=== PATIENT | female | born 1995 | race Caucasian/White ===

== ENCOUNTER → 2020-07-09 | Outpatient (CLI) | payer SELFPAY | LOC: M LABSMTC 10:48 | PROVIDERS: ATTEND Pediatrics | DX: Z20.828 Contact with and (suspected) exposure to other viral communicable diseases (principal) ==

== ENCOUNTER 2021-06-29 06:40 | Outpatient (RCR) | END 2021-06-29 15:00 | disposition home or self-care (01) | LOC: M EMP 06:40 | PROVIDERS: ATTEND Pediatrics | DX: Z11.52 Encounter for screening for COVID-19 (principal) ==

== ENCOUNTER → 2022-09-15 | Outpatient (REF) | payer BC | LOC: M PLALAB 14:27 | PROVIDERS: ATTEND Advanced Practice Midwife | DX: Z53.9 Procedure and treatment not carried out, unspecified reason (principal) ==

== ENCOUNTER → 2022-10-05 | Outpatient (CLI) | payer BC ==
[2022-10-05 16:33] LABS: HEMATOCRIT 39.2 % (36.0-47.0); HEMOGLOBIN 13.3 g/dl (12.0-15.5); MEAN CORPUSCULAR HEMOGLOBIN 31.1 pg (27.0-33.0); MEAN CORPUSCULAR HGB CONC 33.9 g/dl (32.0-36.5); MEAN CORPUSCULAR VOLUME 91.8 fl (80.0-96.0); PLATELET COUNT, AUTOMATED 285 10^3/uL (150-450); RED BLOOD COUNT 4.27 10^6/uL (4.00-5.40); WHITE BLOOD COUNT 11.1 10^3/uL (4.0-10.0)
[2022-10-05 17:29] LABS: HIV 1&2 SCREEN CENTAUR NEGATIVE (NEGATIVE)
[2022-10-05 19:37] LABS: GC DNA AMPLIFICATION NEGATIVE (NEGATIVE)
== END ==
LOC: M PLALAB 14:12
PROVIDERS: ATTEND Advanced Practice Midwife
DX: Z34.01 Encounter for supervision of normal first pregnancy, first trimester (principal)

== ENCOUNTER → 2022-11-12 | Outpatient (CLI) | payer BC | LOC: M WHC 12:10 | PROVIDERS: ATTEND Advanced Practice Midwife | DX: Z34.02 Encounter for supervision of normal first pregnancy, second trimester (principal) ==

== ENCOUNTER → 2022-12-17 | Outpatient (CLI) | payer BC | LOC: M WHC 14:12 | PROVIDERS: ATTEND Obstetrics & Gynecology | DX: Z36.2 Encounter for other antenatal screening follow-up (principal); Z3A.24 24 weeks gestation of pregnancy ==

== ENCOUNTER → 2022-12-31 | Outpatient (CLI) | payer BC ==
[2022-12-31 10:52] LABS: HEMATOCRIT 36.1 % (36.0-47.0); HEMOGLOBIN 11.8 g/dl (12.0-15.5); MEAN CORPUSCULAR HEMOGLOBIN 31.5 pg (27.0-33.0); MEAN CORPUSCULAR HGB CONC 32.7 g/dl (32.0-36.5); MEAN CORPUSCULAR VOLUME 96.3 fl (80.0-96.0); PLATELET COUNT, AUTOMATED 260 10^3/uL (150-450); RED BLOOD COUNT 3.75 10^6/uL (4.00-5.40); WHITE BLOOD COUNT 13.1 10^3/uL (4.0-10.0)
== END ==
LOC: M PLALAB 07:53
PROVIDERS: ATTEND Advanced Practice Midwife
DX: Z34.02 Encounter for supervision of normal first pregnancy, second trimester (principal)

== ENCOUNTER → 2023-01-28 | Outpatient (CLI) | payer BC | LOC: M WHC 12:29 | PROVIDERS: ATTEND Advanced Practice Midwife | DX: Z34.02 Encounter for supervision of normal first pregnancy, second trimester (principal); Z3A.31 31 weeks gestation of pregnancy ==

== ENCOUNTER → 2023-03-18 | Outpatient (REF) | payer BC | LOC: M SFHCWAGY 17:00 | PROVIDERS: ATTEND Obstetrics & Gynecology | DX: Z36.85 Encounter for antenatal screening for Streptococcus B (principal) ==

== ENCOUNTER 2023-04-06 08:36 | Inpatient (IN) | payer BC ==
[~2023-04-06] VITALS: Ht 170.2 cm; Wt 116.8 kg
[2023-04-06] VITALS (8 sets, daily range): BP systolic 132–142; BP diastolic 76–89
[2023-04-06] MEDS ORDERED: MAGN400C2 PO (08:58)
[2023-04-06] MEDS ORDERED: PRENTAB9 PO (08:58)
[2023-04-06] MEDS ORDERED: HOME MED LIST COMPLETE! XX SCH (09:00)
[2023-04-06] MEDS ORDERED: OXYTOCIN INJ 10UNITS/ML 1ML VIAL IM PRN (09:10)
[2023-04-06] MEDS ORDERED: TRANEXAMIC ACID INJection 1,000 MG in NS 100 ML IV PRN (09:10)
[2023-04-06] MEDS ORDERED: METHYLERGONOVINE MALEATE 0.2MG/ML 1ML VIAL IM PRN (09:10)
[2023-04-06] MEDS ORDERED: LIDOCAINE 1% MDV 20ML VIAL INFIL PRN (09:10)
[2023-04-06] MEDS ORDERED: CARBOPROST TROMETHAMINE 250 MCG/ML AMP IM PRN (09:10)
[2023-04-06] MEDS ORDERED: OXYTOCIN DRIP 30 UNITS in IV 1 EA IV PRN ×4 (09:10)
[2023-04-06 09:57] LABS: HEMATOCRIT 36.6 % (36.0-47.0); HEMOGLOBIN 12.2 g/dl (12.0-15.5); MEAN CORPUSCULAR HEMOGLOBIN 30.8 pg (27.0-33.0); MEAN CORPUSCULAR HGB CONC 33.3 g/dl (32.0-36.5); MEAN CORPUSCULAR VOLUME 92.4 fl (80.0-96.0); PLATELET COUNT, AUTOMATED 235 10^3/uL (150-450); RED BLOOD COUNT 3.96 10^6/uL (4.00-5.40); WHITE BLOOD COUNT 11.2 10^3/uL (4.0-10.0)
[2023-04-06] MEDS: miSOPROStol 50MCG 1/2 TABLET PO SCH ×3 (10:21→18:20)
[2023-04-06] MEDS ORDERED: NALBUPHINE HCL 10 MG/ML 1ML AMP IV ONE (23:15)
[2023-04-06] MEDS ORDERED: PROMETHAZINE 25MG/ML 1ML VIAL IV ONE (23:15)
[2023-04-06] MEDS ORDERED: OXYTOCIN DRIP 30 UNITS in IV 1 EA IV SCH (23:25)
[2023-04-07] VITALS (37 sets, daily range): BP systolic 131–180; BP diastolic 67–95; O2SAT 95
[2023-04-07] MEDS: LR 1,000 ML IV SCH ×2 (00:04→11:54)
[2023-04-07] MEDS ORDERED: EPIDURAL/PCA KEYS XX PRN (02:05)
[2023-04-07] MEDS ORDERED: NALOXONE INJ 0.4MG/1ML VIAL IV PRN (02:05)
[2023-04-07] MEDS ORDERED: ONDANSETRON 4MG 2ML VIAL IV PRN (02:05)
[2023-04-07] MEDS ORDERED: ePHEDrine SULFATE 25 MG/5 ML(5MG/ML) SYRINGE IVP PRN (02:05)
[2023-04-07] MEDS ORDERED: diphenhydrAMINE 50MG/ML VIAL IV PRN (02:05)
[2023-04-07] MEDS ORDERED: LR 500 ML IV PRN (02:05)
[2023-04-07] MEDS: FENTANYL/ROPIVACAINE/NACL BAG 100 ML EPIDURAL SCH ×3 (02:44→14:30)
[2023-04-07 18:42] LABS: CORD GAS ABE A -13.2; CORD GAS HCO3 A 14.7 MMOL/L; CORD GAS PCO2 A 40.8 mmHg; CORD GAS PH A 7.174 UNITS; CORD GAS PO2 A 20.4 mmHg; CORD GAS SBC A 13.2 MMOL/L; CORD GAS TCO2 A 15.9 MMOL/L
[2023-04-07 18:44] LABS: CORD GAS ABE V -14.6; CORD GAS HCO3 V 13.7 MMOL/L; CORD GAS O2 SAT V 31.4 %; CORD GAS PCO2 V 40.5 mmHg; CORD GAS PH V 7.148 UNITS; CORD GAS PO2 V 19.6 mmHg; CORD GAS SBC V 12.4 MMOL/L
[2023-04-07] MEDS ORDERED: IBUPROFEN 600MG TAB PO PRN (18:50)
[2023-04-07] MEDS ORDERED: ACETAMINOPHEN TAB 650MG DOSE (2X325MG) PO PRN (18:50)
[2023-04-07] MEDS ORDERED: METHYLERGONOVINE MALEATE 0.2 MG TAB PO PRN (18:50)
[2023-04-07] MEDS ORDERED: DOCUSATE SODIUM 100MG CAPSULE PO PRN (18:50)
[2023-04-07] MEDS ORDERED: DIBUCAINE 1% OINTMENT 30GM TOP PRN (18:50)
[2023-04-07] MEDS ORDERED: IBUPROFEN 800 MG TAB PO PRN (18:50)
[2023-04-07] MEDS ORDERED: RHOGAM 300MCG (1500IU) INJ IM SCH (18:50)
[2023-04-07] MEDS: ACETAMINOPHEN 500 MG TAB PO PRN (19:44)
[2023-04-08 06:00] VITALS: BP 143/81
[2023-04-08] MEDS: PRENATAL VITAMINS CHEWABLE TABLET PO SCH (08:08)
[2023-04-08 18:00] VITALS: BP 138/77; O2SAT 100
[2023-04-09] MEDS: ACETAMINOPHEN 500 MG TAB PO PRN (02:33)
[2023-04-09 05:53] VITALS: BP 145/82; O2SAT 99
[2023-04-09] MEDS: PRENATAL VITAMINS CHEWABLE TABLET PO SCH (07:47)
[2023-04-09] MEDS ORDERED: MEASLES,MUMPS,RUBELLA VACCINE INJ (MMR-II) SC.IMMUN ONE (09:00)
== END 2023-04-09 16:45 | disposition home or self-care (01) | DRG 560 ==
LOC: M LDI 08:36 → M OBS 04-07 20:26
PROVIDERS: ADMIT Advanced Practice Midwife; ATTEND Specialist
PROC: 10E0XZZ Delivery of Products of Conception, External Approach (ICD-10-PCS; principal; 2023-04-06)
PROC: 0HQ9XZZ Repair Perineum Skin, External Approach (ICD-10-PCS; 2023-04-06)
PROC: 3E0P7GC Introduction of Other Therapeutic Substance into Female Reproductive, Via Natural or Artificial Opening (ICD-10-PCS; 2023-04-06)
DX: O69.81X0 Labor and delivery complicated by cord around neck, without compression, not applicable or unspecified (principal); O77.0 Labor and delivery complicated by meconium in amniotic fluid; Z3A.40 40 weeks gestation of pregnancy; O70.0 First degree perineal laceration during delivery; Z37.0 Single live birth; O69.89X0 Labor and delivery complicated by other cord complications, not applicable or unspecified

== ENCOUNTER → 2024-05-15 | Outpatient (REF) | payer BC ==
[~2024-05-15] MED LIST: MAGN400C2 PO; PRENTAB9 PO
[2024-05-17 15:18] LABS: HPV APTIMA Not Detected (Not Detected)
== END ==
LOC: M SFHCWAGY 09:46
PROVIDERS: ATTEND Obstetrics & Gynecology
DX: Z30.8 Encounter for other contraceptive management (principal)

== ENCOUNTER → 2024-11-14 | Outpatient (CLI) | payer BC ==
[2024-11-14 10:53] LABS: HEMATOCRIT 40.2 % (36.0-47.0); HEMOGLOBIN 13.6 g/dl (12.0-15.5); MEAN CORPUSCULAR HEMOGLOBIN 30.8 pg (27.0-33.0); MEAN CORPUSCULAR HGB CONC 33.8 g/dl (32.0-36.5); PLATELET COUNT, AUTOMATED 306 10^3/uL (150-450); RED BLOOD COUNT 4.42 10^6/uL (4.00-5.40); WHITE BLOOD COUNT 9.1 10^3/uL (4.0-10.0)
[2024-11-14 11:44] LABS: HIV 1&2 SCREEN NEGATIVE (NEGATIVE)
[2024-11-14 11:52] LABS: HEPATITIS C VIRUS ABY INDEX 0.03 INDEX (<0.8)
[2024-11-14 12:08] LABS: Trichomonas vaginalis (AMP) NOT DETECTED (NEGATIVE)
[2024-11-14 12:32] LABS: GC DNA AMPLIFICATION NEGATIVE (NEGATIVE)
== END ==
LOC: M PLALAB 07:56
PROVIDERS: ATTEND Advanced Practice Midwife
DX: Z34.81 Encounter for supervision of other normal pregnancy, first trimester (principal)

== ENCOUNTER → 2024-11-14 | Outpatient (CLI) | payer BC | LOC: M WHC 09:25 | PROVIDERS: ATTEND Obstetrics & Gynecology | DX: O20.9 Hemorrhage in early pregnancy, unspecified (principal); Z3A.00 Weeks of gestation of pregnancy not specified ==

== ENCOUNTER → 2024-11-14 | Outpatient (CLI) | payer BC | LOC: M WHC 09:18 | PROVIDERS: ATTEND Advanced Practice Midwife | DX: O20.9 Hemorrhage in early pregnancy, unspecified (principal); Z3A.00 Weeks of gestation of pregnancy not specified; Z53.9 Procedure and treatment not carried out, unspecified reason ==

== ENCOUNTER → 2025-07-30 | Outpatient (REF) | payer BC ==
[2025-08-01 17:03] LABS: HPV APTIMA Not Detected (Not Detected)
== END ==
LOC: M SFHCWAGY 15:10
PROVIDERS: ATTEND Advanced Practice Midwife
DX: Z12.4 Encounter for screening for malignant neoplasm of cervix (principal)
CPT/HCPCS: 87624; G0123